=== PATIENT | male | born 1970 | race Hispanic/Latino ===

== ENCOUNTER 2017-07-08 12:14 | Emergency (ER) | payer OTHER ==
[2017-07-08 12:14] VITALS: BMI 21.5
[2017-07-08 12:30] VITALS: BP 199/117; PULSE 95; RESP 16; TEMP 97.8; O2SAT 100
[2017-07-08] MEDS ORDERED: Sodium Chloride 0.9% 1,000 ML IV STA (13:10)
[2017-07-08 13:29] LABS: BASO # 0.1 K/uL (0.0-0.2); BASO % 0.4 % (0.0-2.0); EOS # 0.2 K/uL (0.0-0.7); EOS % 1.2 % (0.0-4.0); HEMOGLOBIN 15.7 g/dL (12.0-18.0); LYMPH % 14.1 % (20.0-40.0); MEAN CELL VOLUME 85.9 fl (80.0-94.0); MEAN CORPUSCULAR HEMOGLOBIN 28.6 pg (27.0-31.0); MEAN CORPUSCULAR HGB CONC 33.3 g/dL (33.0-37.0); MONO # 0.6 K/uL (0.0-0.8); MONO % 4.1 % (0.0-10.0); NEUT # 11.2 K/uL (1.8-7.0); NEUT % 80.2 % (50.0-75.0); NRBC % 0.1 % (0.0-0.0); RBC 5.49 Mil/uL (4.40-5.90); RED CELL DISTRIBUTION WIDTH 13.7 % (11.5-14.5); WHITE BLOOD COUNT 13.9 K/uL (4.8-10.8)
[2017-07-08 13:44] LABS: ALB/GLOB RATIO 1.5 (1.0-2.1); ALBUMIN 4.8 g/dL (3.5-5.0); ALT/SGPT 68 U/L (21-72); AST/SGOT 36 U/L (17-59); BLOOD UREA NITROGEN 18 mg/dl (9-20); CALCIUM 10.1 mg/dL (8.4-10.2); GFR AFRICAN-AMERICAN > 60; GFR NON-AFRICAN AMERICAN 60; LIPASE 78 U/L (23-300)
--- NOTE | 2017-07-08 14:13 | ED PDOC ---
HPI: Back Time Seen by Provider: 07/08/17 12:57 Chief Complaint (Nursing): Back Pain Chief Complaint (Provider): Right Flank Pain History Per: Patient History/Exam Limitations: no limitations Onset/Duration Of Symptoms: Hrs (x3) Current Symptoms Are (Timing): Still Present Additional Complaint(s): Hal Kumari is a 47 year old male with a history of kidney stones, the last of which was in 2013, that presents to the ED with a chief complaint of acute right flank pain that began around 10:30 AM this morning. Patient reports that he had a few episodes of vomiting but no diarrhea, and that the pain he currently feels is similar to the pain he has had in the past for kidney stones. He denies any fevers, chills, burning dysuria, blood in urine, or any other medical problems. Past Medical History Reviewed: Historical Data, Nursing Documentation, Vital Signs Vital Signs: Last Vital Signs Temp 97.8 F 07/08/17 12:28 Pulse 95 H 07/08/17 12:28 Resp 16 07/08/17 12:28 BP 199/117 H 07/08/17 12:28 Pulse Ox 100 07/08/17 12:28 - Medical History PMH: Kidney Stones (2013) - Family History Family History: States: Unknown Family Hx - Home Medications Home Medications: Ambulatory Orders Medication Instructions Recorded Acetaminophen/Oxycodone Hydr 1 - 2 tab PO Q6 PRN #24 tab 04/21/14 [Percocet 325 mg-5 mg] Tamsulosin [Flomax] 0.4 mg PO DAILY #20 cap 04/21/14 - Allergies Allergies/Adverse Reactions: Allergies Allergy/AdvReac Type Severity Reaction Status Date / Time No Known Allergies Allergy Verified 04/21/14 05:22 Review of Systems Constitutional: Negative for: Fever, Chills Gastrointestinal: Positive for: Vomiting (Vomited in ER multiple times). Negative for: Diarrhea Genitourinary Male: Negative for: Dysuria, Hematuria Musculoskeletal: Positive for: Back Pain (right flank pain) Physical Exam - Reviewed Nursing Documentation Reviewed: Yes Vital Signs Reviewed: Yes - Physical Exam Appears: Positive for: Non-toxic, Uncomfortable. Negative for: No Acute Distress (Patient is pale, in mild distress) Head Exam: Positive for: ATRAUMATIC, NORMOCEPHALIC Skin: Positive for: Normal Color, Warm Eye Exam: Positive for: Normal appearance, EOMI, PERRL Neck: Positive for: Normal, Supple Cardiovascular/Chest: Positive for: Regular Rate, Rhythm. Negative for: Murmur Respiratory: Positive for: Normal Breath Sounds. Negative for: Wheezing Gastrointestinal/Abdominal: Positive for: Tenderness (Mild RLQ TTP without rebound). Negative for: Rebound Back: Positive for: R CVA Tenderness (mild). Negative for: Normal Inspection Extremity: Positive for: Normal ROM. Negative for: Tenderness, Swelling Neurologic/Psych: Positive for: Alert, Oriented. Negative for: Motor/Sensory Deficits - Laboratory Results Result Diagrams: 07/08/17 13:20 07/08/17 13:20 - ECG O2 Sat by Pulse Oximetry: 100 (RA) Pulse Ox Interpretation: Normal Medical Decision Making Medical Decision Making: Impression: Acute Renal Colic Plan: * CT Scan Abd/Pelvis w/o PO or IV contrast * Urine dip * Pepcid 20 mg IV * Toradol 30 mg IV * Zofran 4 mg IV * NaCl 1000 mLs at 1000 mLs/hr * Reevaluation Urine dip shows large amount of blood, no leukocytes. 15:[address] Sparks for flank pain, pending CT Scan. Scribe Attestation: Documented by Diana Duarte, acting as a scribe for Ashlie Verma MD. Provider Scribe Attestation: All medical record entries made by the Scribe were at my direction and personally dictated by me. I have reviewed the chart and agree that the record accurately reflects my personal performance of the history, physical exam, medical decision making, and the department course for this patient. I have also personally directed, reviewed, and agree with the discharge instructions and disposition. Disposition - Clinical Impression Clinical Impression: Renal colic on right side - Patient ED Disposition Is Patient to be Admitted: Transfer of Care - Disposition Disposition: Transfer of Care Disposition Time: 15:00 Condition: FAIR Forms: [employer] (Slovak) Patient Signed Over To: Ericka Sparks
--- NOTE | 2017-07-08 15:02 | CT ---
PROCEDURE: CT scan of the abdomen pelvis dated 07/08/2017. HISTORY: Right-sided flank pain COMPARISON: Comparison made with prior CT scan abdomen pelvis 04/21/2014 TECHNIQUE: Contiguous helical/transaxial images of the abdomen and pelvis performed without oral or intravenous contrast material. Additional 2 dimensional sagittal and coronal reformats provided. Radiation dose: Total exam DLP = 801.78 mGy-cm. This CT exam was performed using one or more of the following dose reduction techniques: Automated exposure control, adjustment of the mA and/or kV according to patient size, and/or use of iterative reconstruction technique. FINDINGS: LOWER THORAX: Mild passive atelectasis both posterior lower lung zones. No effusion or basilar pneumothorax. Small hiatal hernia with wall thickening of the distal esophagus likely due to protrusion of gastric mucosa however the possibility of a esophagitis or other intrinsic/ invasive wall lesion not excluded. Clinical correlation recommended. LIVER: Liver is enlarged measuring nearly 21 cm in CC dimension. No obvious hepatic mass or collection. Suspect very minimal diffuse fatty hepatic infiltration. GALLBLADDER AND BILE DUCTS: U gallbladder is physiologically distended. No evidence of intraluminal gallbladder calculi. . PANCREAS: Pancreas appears grossly unremarkable without masses collections or calcifications. SPLEEN: Spleen is of borderline/mildly enlarged measuring nearly 12.5 cm in AP dimension. Small splenule seen dorsal to the main body of the spleen. ADRENALS: There are no adrenal lesions. KIDNEYS AND URETERS: Several tiny 2-3 mm calcifications seen in the right renal pelvis. There is mild dilatation of the right renal pelvis and proximal ureter. The the distal ureter is not well delineated however does not appear significantly dilated. Small approximately 1.7 mm calculus right pelvis best seen on axial series 3, image number [id number]. This could be a small pelvic phlebolith (with a recently passed calculus) however the possibility of a distal right ureteral calculus cannot be completely excluded. Clinical correlation with urinalysis recommended There are several tiny and punctate nonobstructing calculi left kidney BLADDER: Urinary bladder is incompletely distended which in part accounts thick-walled appearance. Muscular hypertrophy may contribute. REPRODUCTIVE: Unremarkable as visualized. APPENDIX: Normal-appearing retrocecal appendix BOWEL: Evaluation of the bowel is limited due to the lack of oral contrast. The stomach is incompletely distended. Visualized loops of small bowel exhibit normal contour and caliber. No evidence of acute mechanical small bowel obstruction. PERITONEUM: Unremarkable. No fluid collection. No free air. LYMPH NODES: Unremarkable. No enlarged lymph nodes. VASCULATURE: Unremarkable. No aortic aneurysm. BONES: Mild multilevel degenerative spondylosis of the lower thoracic and lumbar spine. There are no acute compression fractures no retropulsed fragments. OTHER FINDINGS: None. IMPRESSION: There are multiple small calculi both kidneys right more numerous than the left with mild proximal right-sided hydronephrosis. The distal right ureter is not visualized there does not appear significantly dilated so far as can be seen. Tiny approximately 2 mm calcification right pelvis could represent a calcified pelvic phlebolith (with a recently passed calculus and) however the possibility of a small distal right ureteral calculus is not excluded. Hepatomegaly. Suspect mild fatty hepatic infiltration. Borderline splenomegaly.
--- NOTE | 2017-07-08 15:10 | ED PDOC ---
- Laboratory Results Result Diagrams: 07/08/17 13:20 07/08/17 13:20 - ECG O2 Sat by Pulse Oximetry: 100 (RA) Medical Decision Making Medical Decision Makin:[address] Verma of flank pain, pending CT Scan. 15:[address] Scan Abd/Pelvis w/o PO or IV Contrast FINDINGS: LOWER THORAX: Mild passive atelectasis both posterior lower lung zones. No effusion or basilar pneumothorax. Small hiatal hernia with wall thickening of the distal esophagus likely due to protrusion of gastric mucosa however the possibility of a esophagitis or other intrinsic/ invasive wall lesion not excluded. Clinical correlation recommended. LIVER: Liver is enlarged measuring nearly 21 cm in CC dimension. No obvious hepatic mass or collection. Suspect very minimal diffuse fatty hepatic infiltration. GALLBLADDER AND BILE DUCTS: U gallbladder is physiologically distended. No evidence of intraluminal gallbladder calculi. . PANCREAS: Pancreas appears grossly unremarkable without masses collections or calcifications. SPLEEN: Spleen is of borderline/mildly enlarged measuring nearly 12.5 cm in AP dimension. Small splenule seen dorsal to the main body of the spleen. ADRENALS: There are no adrenal lesions. KIDNEYS AND URETERS: Several tiny 2-3 mm calcifications seen in the right renal pelvis. There is mild dilatation of the right renal pelvis and proximal ureter. The the distal ureter is not well delineated however does not appear significantly dilated. Small approximately 1.7 mm calculus right pelvis best seen on axial series 3, image number [id number]. This could be a small pelvic phlebolith (with a recently passed calculus) however the possibility of a distal right ureteral calculus cannot be completely excluded. Clinical correlation with urinalysis recommended There are several tiny and punctate nonobstructing calculi left kidney BLADDER: Urinary bladder is incompletely distended which in part accounts thick-walled appearance. Muscular hypertrophy may contribute. REPRODUCTIVE: Unremarkable as visualized. APPENDIX: Normal-appearing retrocecal appendix BOWEL: Evaluation of the bowel is limited due to the lack of oral contrast. The stomach is incompletely distended. Visualized loops of small bowel exhibit normal contour and caliber. No evidence of acute mechanical small bowel obstruction. PERITONEUM: Unremarkable. No fluid collection. No free air. LYMPH NODES: Unremarkable. No enlarged lymph nodes. VASCULATURE: Unremarkable. No aortic aneurysm. BONES: Mild multilevel degenerative spondylosis of the lower thoracic and lumbar spine. There are no acute compression fractures no retropulsed fragments. OTHER FINDINGS: None. IMPRESSION: There are multiple small calculi both kidneys right more numerous than the left with mild proximal right-sided hydronephrosis. The distal right ureter is not visualized there does not appear significantly dilated so far as can be seen. Tiny approximately 2 mm calcification right pelvis could represent a calcified pelvic phlebolith (with a recently passed calculus and) however the possibility of a small distal right ureteral calculus is not excluded. Hepatomegaly. Suspect mild fatty hepatic infiltration. Borderline splenomegaly. 15:05 Patient reevaluated, is feeling better except for having nausea. Discussed with patient findings and plan of care, will be stable for discharge after additional Zofran IV. Scribe Attestation: Documented by Diana Duarte, acting as a scribe for Ericka Sparks MD. Provider Scribe Attestation: All medical record entries made by the Scribe were at my direction and personally dictated by me. I have reviewed the chart and agree that the record accurately reflects my personal performance of the history, physical exam, medical decision making, and the department course for this patient. I have also personally directed, reviewed, and agree with the discharge instructions and disposition. Disposition - Clinical Impression Clinical Impression: Renal colic on right side - Disposition Condition: FAIR Forms: [employer] (Yakut)
== END 2017-07-08 16:12 | disposition home or self-care (01) ==
LOC: H.ER 12:14
DX: N23 Unspecified renal colic (principal); Z87.442 Personal history of urinary calculi
CPT/HCPCS: 74176; 80053; 83690; 85025; 96374; 96375; 96376; 99283; J1885; J2405; J7040